=== PATIENT | male | born 1955 | race Two or more races ===

== ENCOUNTER 2021-09-03 20:33 | Observation (INO) | payer OTHER ==
[~2021-09-03] VITALS: Ht 165.1 cm; Wt 43.8 kg
[2021-09-03] MEDS ORDERED: DEXTROSE (50%) 50ML SYRG IV ONE (20:45)
[2021-09-03] MEDS ORDERED: DEXTROSE 10% 250 ML IV PRN ×2 (20:45→21:00)
[2021-09-03] MEDS ORDERED: DEXTROSE 10% 1,000 ML IV ONE (21:45)
[2021-09-03 22:27] LABS: Basophils # (auto) 0 10 ^3/uL (0-0.2); Basophils % (auto) 0.1 % (0.0-2.0); Eosinophils # (auto) 0 10 ^3/uL (0-0.8); Eosinophils % (auto) 0.1 % (0.0-7.0); Hemoglobin 11.2 g/dL (13.5-17.5); Lymphocytes # (auto) 0.5 10 ^3/uL (0.4-5.4); Lymphocytes % (auto) 5.8 % (10.0-50.0); Mean Corpuscular Hemoglobin 34.2 pg (28.0-32.0); Mean Corpuscular Volume 103.9 fL (80.0-100.0); Monocytes # (auto) 0.5 10 ^3/uL (0-1.3); Monocytes % (auto) 6.9 % (0.0-12.0); Neutrophils % (auto) 87.1 % (37.0-80.0); Red Blood Cells 3.27 10^6/uL (4.5-5.90); Red Cell Distribution Width 19.2 % (11.8-14.3)
[2021-09-03 22:43] LABS: Albumin 1.8 g/dL (3.4-5.0); BUN/Creatinine Ratio 21.6; Calcium 7.3 mg/dL (8.5-10.1); Potassium 4.1 mmol/L (3.5-5.1)
[2021-09-03 22:46] LABS: Bilirubin, Total 3.1 mg/dL (0.2-1.0); Total Protein 5.4 g/dL (6.4-8.2)
[2021-09-04 01:09] LABS: Urine Bacteria NONE SEEN /hpf (None Seen); Urine Blood 2+ /uL (Negative); Urine Specific Gravity 1.019 (1.001-1.035); Urine WBC 3 /hpf (0 - 3)
[2021-09-04] MEDS ORDERED: IOHEXOL 350 MG/ML 100ML IJ ONE (04:07)
[2021-09-04] MEDS ORDERED: DEXTROSE (50%) 50ML SYRG IV PRN (06:45)
[2021-09-04] MEDS ORDERED: NITROGLYCERIN 0.4 MG SL TAB SL PRN (06:45)
[2021-09-04] MEDS ORDERED: MORPHINE SULFATE INJECTION 2 MG/ML SYRG IV PRN (06:45)
[2021-09-04] MEDS ORDERED: ONDANSETRON HCL 4 MG/2 ML VIAL IV PRN (06:45)
[2021-09-04] MEDS: ACCU-CHEK COMFORT CURVE STRIP VI SCH ×3 (07:30→16:46)
[2021-09-04] MEDS ORDERED: DEXTROSE 10% 250 ML IV PRN ×2 (08:45)
[2021-09-04] MEDS ORDERED: LACTULOSE 20Gm/30ML SOLN PO SCH (10:00)
[2021-09-04] MEDS: LEVOTHYROXINE SODIUM 50 MCG TAB PO SCH (10:00)
[2021-09-04] MEDS ORDERED: ZINC SULFATE 220mg CAP or TAB PO SCH (10:00)
[2021-09-04] MEDS ORDERED: CHOLECALCIFEROL (VITD3) 2,000 UNIT CAP/TAB PO SCH (10:00)
[2021-09-04] MEDS: predniSONE 20 MG TAB PO SCH (10:15)
[2021-09-04] MEDS: ASCORBIC ACID 500 MG TAB PO SCH (10:15)
[2021-09-04] MEDS: PANTOPRAZOLE 40 MG TAB PO SCH (10:15)
[2021-09-04 10:46] LABS: Basophils # (auto) 0 10 ^3/uL (0-0.2); Basophils % (auto) 0.2 % (0.0-2.0); Eosinophils # (auto) 0 10 ^3/uL (0-0.8); Eosinophils % (auto) 0.6 % (0.0-7.0); Hematocrit 34.2 % (41.0-53.0); Hemoglobin 11.8 g/dL (13.5-17.5); Lymphocytes # (auto) 0.6 10 ^3/uL (0.4-5.4); Lymphocytes % (auto) 9.4 % (10.0-50.0); Mean Corpuscular Hemoglobin 34.8 pg (28.0-32.0); Mean Corpuscular Hgb Conc. 34.4 g/dL (32.0-36.0); Mean Corpuscular Volume 101.2 fL (80.0-100.0); Monocytes # (auto) 0.5 10 ^3/uL (0-1.3); Monocytes % (auto) 7.3 % (0.0-12.0); Neutrophils # (auto) 5.1 10 ^3/uL (1.6-8.6); Neutrophils % (auto) 82.5 % (37.0-80.0); Red Blood Cells 3.38 10^6/uL (4.5-5.90); Red Cell Distribution Width 18.7 % (11.8-14.3); White Blood Cell 6.2 10^3/uL (4.4-10.8)
[2021-09-04 11:04] LABS: Albumin 1.9 g/dL (3.4-5.0); Calcium 7.5 mg/dL (8.5-10.1); Potassium 3.6 mmol/L (3.5-5.1)
[2021-09-04 11:10] LABS: Bilirubin, Total 3.3 mg/dL (0.2-1.0); Total Protein 5.7 g/dL (6.4-8.2)
[2021-09-04 11:13] LABS: INR 1.42 (0.9-1.15)
[2021-09-04] MEDS ORDERED: CHOL1CAP47 PO (17:28)
[2021-09-04] MEDS ORDERED: ASCO500T11 PO (17:28)
[2021-09-04] MEDS: D5W/SOD CHL 0.45% 1,000 ML IV SCH (18:20)
[2021-09-04 23:16] VITALS: BP 155/71
[2021-09-05] MEDS: D5W/SOD CHL 0.45% 1,000 ML IV SCH (02:39)
[2021-09-05] MEDS: ACCU-CHEK COMFORT CURVE STRIP VI SCH ×2 (02:40→06:14)
[2021-09-05] MEDS: ASCORBIC ACID 500 MG TAB PO SCH (02:46)
[2021-09-05 05:00] VITALS: BP 115/69
[2021-09-05] MEDS: LEVOTHYROXINE SODIUM 50 MCG TAB PO SCH (06:14)
[2021-09-05 06:44] LABS: Basophils # (auto) 0 10 ^3/uL (0-0.2); Eosinophils # (auto) 0 10 ^3/uL (0-0.8); Hemoglobin 11.4 g/dL (13.5-17.5); Monocytes # (auto) 0.6 10 ^3/uL (0-1.3); Nucleated Red Blood Cells % 0.1 %; Red Blood Cells 3.32 10^6/uL (4.5-5.90)
[2021-09-05 06:48] LABS: Basophils % (auto) 0.6 % (0.0-2.0); Eosinophils % (auto) 0.5 % (0.0-7.0); Hematocrit 33.1 % (41.0-53.0); Lymphocytes # (auto) 0.6 10 ^3/uL (0.4-5.4); Lymphocytes % (auto) 9.4 % (10.0-50.0); Mean Corpuscular Hemoglobin 34.5 pg (28.0-32.0); Mean Corpuscular Hgb Conc. 34.6 g/dL (32.0-36.0); Mean Corpuscular Volume 99.6 fL (80.0-100.0); Monocytes % (auto) 9.4 % (0.0-12.0); Neutrophils # (auto) 5.3 10 ^3/uL (1.6-8.6); Neutrophils % (auto) 80.1 % (37.0-80.0); Red Cell Distribution Width 18.3 % (11.8-14.3); White Blood Cell 6.6 10^3/uL (4.4-10.8)
[2021-09-05 07:08] LABS: Albumin 1.8 g/dL (3.4-5.0); BUN/Creatinine Ratio 19.4; Calcium 7.6 mg/dL (8.5-10.1); Potassium 3.4 mmol/L (3.5-5.1)
[2021-09-05 07:11] LABS: Total Protein 5.3 g/dL (6.4-8.2)
[2021-09-05 08:00] VITALS: BP 99/57
[2021-09-05] MEDS ORDERED: LACT10SO3 PO (11:01)
[2021-09-05] MEDS: PANTOPRAZOLE 40 MG TAB PO SCH (11:05)
[2021-09-05] MEDS: predniSONE 20 MG TAB PO SCH (11:05)
== END 2021-09-05 11:25 | disposition hospice, home (50) ==
LOC: EDBD 20:33 → ER 20:36 → EDBD 20:36 → OVERFLOW 09-04 06:36 → TELE-WESTW 09-04 22:05
PROVIDERS: ADMIT Hospitalist; ATTEND Hospitalist
DX: U07.1 COVID-19 (principal); E11.649 Type 2 diabetes mellitus with hypoglycemia without coma; G93.40 Encephalopathy, unspecified; R41.82 Altered mental status, unspecified; J12.82 Pneumonia due to coronavirus disease 2019; R09.02 Hypoxemia; I10 Essential (primary) hypertension; F17.200 Nicotine dependence, unspecified, uncomplicated; K74.60 Unspecified cirrhosis of liver
CPT/HCPCS: 36415; 70450; 71045; 71260; 80053; 81001; 82140; 82962; 85025; 85610; 87426; 93005; 96360; 96361; 99291; G0378; J7512; Q9967